=== PATIENT | male | born 1935 | race Caucasian/White ===

== ENCOUNTER 2023-05-11 20:50 | Emergency (ER) | payer OTHER ==
[2023-05-11 21:25] VITALS: BP 106/80; PULSE 100; RESP 20; TEMP 97.8; BMI 25.8
== END 2023-05-11 21:47 | disposition home or self-care (01) ==
LOC: FER 20:50
DX: R03.1 Nonspecific low blood-pressure reading (principal)
CPT/HCPCS: 99282-25